=== PATIENT | female | born 1960 | race Caucasian/White ===

== ENCOUNTER 2018-05-25 12:54 | Outpatient (CLI) | payer MEDICARE, MEDICAID ==
[2018-05-25 13:57] LABS: #Basophils 0.1 thou/uL (0.0-0.2); #Eosinphils 0.2 thou/uL (0.0-0.7); #Lymphocytes 3.5 thou/uL (1.20-3.40); #Monocytes 0.6 thou/uL (0.11-0.59); #Neutrophils 5.1 thou/uL (1.40-6.50); %Basophils 0.8 % (0.0-1.0); %Lymphocytes 36.7 % (21.0-51.0); %Monocytes 6.3 % (0.0-10.0); %Neutrophils 54.2 % (42.0-75.0); Hemoglobin 12.7 g/dL (12.0-16.0); Mean Corpuscular HGB CONC 32.6 g/dL (32.0-36.0); Mean Corpuscular Hemoglobin 31.2 pg (27.0-31.0); Mean Corpuscular Volume 95.7 fL (78.0-98.0); Mean Platelet Volume 6.9 fL (7.4-10.4); Platelet Count 245 thou/uL (130-400); RBC Distribution Width 11.8 % (11.5-14.5); Red Blood Cell (RBC) Count 4.06 mill/uL (4.20-5.40); White Blood Cell (WBC) Count 9.4 thou/uL (4.8-10.8)
[2018-05-25 14:32] LABS: Anion Gap 14 mmol/L (10-20); BUN (Urea Nitrogen) 16 mg/dL (9.8-20.1); Calc. Creatinine Clearance 0 mL/min (70-130); Carbon Dioxide 23 mmol/L (22-29); Chloride 106 mmol/L (98-107); Estimated GFR-MDRD 58; Glucose 96 mg/dL (70-105); Sodium 139 mmol/L (136-145)
== END 2018-05-25 12:55 | disposition home or self-care (01) ==
LOC: LABBT 12:54
PROVIDERS: ATTEND Surgery
DX: Z01.812 Encounter for preprocedural laboratory examination (principal); C21.0 Malignant neoplasm of anus, unspecified
CPT/HCPCS: 80048; 85025

== ENCOUNTER 2018-05-28 10:29 | Day surgery (SDC) | payer MEDICARE, MEDICAID ==
[2018-05-25 13:26] VITALS: BMI 24.4
[2018-05-28] MEDS ORDERED: Lidocaine 2% PF Inj 2 ML VIAL ONE (11:55)
[2018-05-28] MEDS ORDERED: Bupivacaine/Epinephrine 0.25% 30 ML VIAL ONE (11:55)
[2018-05-28] MEDS ORDERED: Midazolam HCl 2 mg/2 ml Vial ONE (12:02)
[2018-05-28] MEDS ORDERED: CEFAZOLIN/Water 2 GM/20 ML SYRINGE ONE (12:05)
[2018-05-28] MEDS ORDERED: PHENYLEPHRINE-NS 100 MCG/ML 10 ML SYRINGE ONE (12:37)
[2018-05-28] MEDS ORDERED: PROPOFOL 200 MG/20 ML VIAL ONE (12:37)
[2018-05-28] MEDS ORDERED: Lidocaine 1% PF 5 ML VIAL ONE (12:37)
--- NOTE | 2018-05-28 14:24 | OP ---
DATE OF PROCEDURE: 05/28/2018 PREOPERATIVE DIAGNOSIS: Anal squamous cell carcinoma. POSTOPERATIVE DIAGNOSIS: Anal squamous cell carcinoma. PROCEDURE: Tunneled central line with subcutaneous port (MediPort, CT injectable). ANESTHESIA: General. ESTIMATED BLOOD LOSS: Minimal. COMPLICATIONS: None. SPECIMEN: None. FINDINGS: Tip of the catheter is at the atriocaval junction. TECHNIQUE: The patient was taken to the operating room and placed supine on the table. After genera l anesthetic was obtained, bilateral neck and chest was prepped and draped in a sterile fashion. Loc al anesthetic infiltrated over the right internal jugular vein. Internal jugular vein cannulated usi ng a 22-gauge finder needle followed by a Seldinger needle. Wire was passed into the superior vena c ruby under fluoroscopic guidance. A small sebastián was made at the wire entrance site. A separate 3-cm i ncision made in the right upper chest. Subcutaneous pocket made below the lower incision. Tubing fo r the MediPort tunneled from the inferior to superior incision. Introducer sheath was placed over th e wire into the superior vena cava under fluoroscopy guidance. The dilator wire removed. The end of the catheter shredded into the sheath and the sheath was peeled away. The tip of the catheter is at the atriocaval junction. MediPort tubing is cut to fit the MediPort at the lower incision, connecte d to the MediPort, and the MediPort sewn to the chest wall and the subcutaneous pocket using Prolene. All ports flushed and draw blood without difficulty. MediPort is flushed with a heparin flush. In cisions are closed using 3-0 Vicryl, 4-0 Monocryl, and Dermabond. The patient went to recovery in st able condition. All sponge counts and needle counts, and lap counts were correct.
--- NOTE | 2018-05-28 14:56 | RAD ---
PORTABLE CHEST ONE VIEW: Date: 05-28-18 Time: 1:30 p.m. History: Mediport placement. FINDINGS: The heart size is normal. The lungs are expanded. There is a calcified granuloma in the right midlung . The tip of the left [id number], the tip is in the projection of the SVC. No pneumothoraces, fo rosibel areas of consolidation, or pleural effusions are seen. POS: [facility]
== END 2018-05-28 14:30 | disposition home or self-care (01) ==
LOC: SDC 10:29
PROVIDERS: ATTEND Surgery
PROC: 0JH63WZ Insertion of Totally Implantable Vascular Access Device into Chest Subcutaneous Tissue and Fascia, Percutaneous Approach (ICD-10-PCS; principal; 2018-05-28)
DX: C21.0 Malignant neoplasm of anus, unspecified (principal); F17.210 Nicotine dependence, cigarettes, uncomplicated; Z79.899 Other long term (current) drug therapy
CPT/HCPCS: 71045; C1788; J1642; J2001; J2250; J2704

== ENCOUNTER 2018-06-01 08:31 | Outpatient (CLI) | payer MEDICARE, MEDICAID ==
[2018-06-01] MEDS ORDERED: ISOVUE-370 76%-LOCM 1 ML ONE (13:26)
--- NOTE | 2018-06-01 17:43 | CT ---
CT CHEST WITH IV CONTRAST CT ABDOMEN AND PELVIS WITH IV AND ORAL CONTRAST: Date: 06/01/18 HISTORY: Anal cancer. Initial staging. FINDINGS: Calcified granulomata are present throughout each lung. Pulmonary hyperinflation. Calcification in th e arterial structures with some calcified mediastinal lymph nodes evident. Some lymph nodes measure u p to 1.2 cm greatest diameter throughout the mediastinum. No overtly enlarged lymph nodes. At the anterior midline liver dome, a lobular low density mass measuring up to 2.1 cm greatest diamet er shows peripheral nodular enhancement with the appearance of a hemangioma. Tiny, nonspecific low de nsity lesion is also evident within the right lateral dome of the liver. There are calcified lymph no camden within the central abdomen. A 0.4 cm calculus is evident within a nondilated hai at the inferio r pole of the left kidney. Degenerative changes lumbar spine. Urinary bladder is unremarkable. Within the subcutaneous tissues at the intergluteal fold, lobular, well circumscribed, soft tissue de nsity lesions measure up to 2.5 cm obliquely on the right, and 1.0 cm on the left. These have the torie earance of a subcutaneous process. IMPRESSION: 1. No reliable evidence of metastatic disease. Incidental findings as detailed above, including malinda ngioma within the left liver lobe. 2. Atherosclerosis. 3. Nonobstructing small left renal calculus. POS: [facility]
== END 2018-06-01 08:32 | disposition home or self-care (01) ==
LOC: BICCT 08:31
PROVIDERS: ATTEND Internal Medicine Hematology & Oncology
DX: C21.1 Malignant neoplasm of anal canal (principal); N20.0 Calculus of kidney; I70.90 Unspecified atherosclerosis
CPT/HCPCS: 71260; 74177

== ENCOUNTER 2018-06-07 10:38 | Outpatient (CLI) | payer MEDICARE, MEDICAID ==
--- NOTE | 2018-06-07 15:42 | PET ---
PET CT FROM SKULL BASE TO MID THIGHS: INDICATION: History of anal cancer. COMPARISON: Prior CT of the chest, abdomen, and pelvis dated 06/01/18. TECHNIQUE: Multiple PET CT images were obtained from the skull base through the mid thighs following injection o f 10.8 mCi [id number] IV. CT images were obtained for attenuation correction purposes only. FINDINGS: The biodistribution for the examination appears acceptable. Head/Neck: There is hypermetabolic activity involving the left adenoids and both palatine tonsils. The right pal atine tonsil has a peak SUV uptake of 4.5 and a mean uptake of 4.06. The left palatine tonsil has a p eak uptake of 3.34 and a mean uptake of 3.18. There is an enlarged and hypermetabolic deep right Leve l IIA lymph node measuring 1.1 cm with a peak uptake of 3.2 and a mean uptake of 3.17. There is an ad ditional right Level III mildly prominent lymph node measuring 7.0 mm in its greatest short axis dime nsion and with an increased metabolic uptake of 2.36 and a mean uptake of 2.1. No additional hypermet abolic lymphadenopathy or masses are identified within the head/neck region. Thorax: There is a right IJ chest wall port in place. There are shotty appearing lymph nodes with calcificati ons seen within the mediastinum and both hilar regions. There are coronary artery and thoracic aortic calcifications. No hypermetabolic pulmonary nodule or pleural effusion is evident. There is a calcif ied granuloma in the right upper lobe. There is scattered emphysema. Abdomen/Pelvis: There are numerous calcified lymph nodes within the upper abdomen. There are calcified granuloma with in the spleen. There is some background activity seen within the liver and colon. There is excretory activity seen within the kidneys. There are scattered vascular calcifications. There is prominent hypermetabolic uptake seen at the level of the anus with a peak uptake of 11.17 an d a mean uptake of 10.4. There are subcutaneous hypodense lesions adjacent to the midline gluteal memo ft likely reflecting small sebaceous cysts. There is an enlarged left inguinal lymph node measuring 1 .4 cm with mild hypermetabolic activity measuring up to 2.66 and a mean value of 2.18. Skin/Osseous Structures: No hypermetabolic skin or osseous abnormality is demonstrated. IMPRESSION: Abnormal PET scan: 1. There is a hypermetabolic mass seen at the level of the anus consistent with patient's known hist ory of anal cancer. 2. There is a hypermetabolic left inguinal lymph node measuring up to 1.4 cm suspicious for metastat ic disease. 3. Hypermetabolic activity involving the palatine tonsils and left adenoidal tissue with adjacent ri ght neck hypermetabolic lymph nodes. This can be infectious in nature. Pharyngeal malignancy cannot b e entirely excluded. Recommend correlation with direct visualization of the patient's history. A foll ow-up CT of the soft tissues of the neck utilizing contrast may be helpful to document clearance. 4. Findings of prior granulomatous disease. 5. Emphysema. 6. Coronary artery calcifications. POS: [facility]
== END 2018-06-07 10:39 | disposition home or self-care (01) ==
LOC: PET 10:38
PROVIDERS: ATTEND Radiology Radiation Oncology
DX: C21.8 Malignant neoplasm of overlapping sites of rectum, anus and anal canal (principal); K62.89 Other specified diseases of anus and rectum; J43.9 Emphysema, unspecified; I25.10 Atherosclerotic heart disease of native coronary artery without angina pectoris
CPT/HCPCS: 78815; 80053; 82248; 83615; 84100; 84550; A9552; 36415

== ENCOUNTER 2018-06-11 14:05 | Day surgery (SDC) | payer MEDICARE, MEDICAID ==
[2018-06-11] MEDS ORDERED: Sodium Chloride 0.9% 20 ML ONE (14:17)
[2018-06-11 15:04] VITALS: BP 147/85; TEMP 98.1
[2018-06-11] MEDS ORDERED: PALONOSETRON HCL 0.05 MG/ML 5 ML VIAL IVP SCH (15:15)
[2018-06-11] MEDS ORDERED: SODIUM CHLORIDE 0.9% IV SCH (15:45)
[2018-06-11] MEDS ORDERED: MITOMYCIN IV SCH (15:45)
== END 2018-06-11 16:02 | disposition home or self-care (01) ==
LOC: ONC/OP 14:05
PROVIDERS: ATTEND Internal Medicine
DX: Z51.11 Encounter for antineoplastic chemotherapy (principal); C21.1 Malignant neoplasm of anal canal; F17.210 Nicotine dependence, cigarettes, uncomplicated; Z79.899 Other long term (current) drug therapy
CPT/HCPCS: 96375; 96409; J1642; J2469; J7050; J9280

== ENCOUNTER 2018-07-16 11:41 | Day surgery (SDC) | payer MEDICARE, MEDICAID ==
[2018-07-16 11:52] VITALS: TEMP 97.4
[2018-07-16] MEDS ORDERED: Palonosetron HCl 0.25 MG in Sodium Chloride 0.9% 50 ML IVPB SCH (12:00)
[2018-07-16] MEDS ORDERED: MITOMYCIN IV SCH ×2 (12:00→12:15)
[2018-07-16] MEDS ORDERED: SODIUM CHLORIDE 0.9% IV SCH ×2 (12:00→12:15)
== END 2018-07-16 14:06 | disposition home or self-care (01) ==
LOC: ONC/OP 11:41
PROVIDERS: ATTEND Internal Medicine
DX: Z51.11 Encounter for antineoplastic chemotherapy (principal); Z53.9 Procedure and treatment not carried out, unspecified reason; C21.1 Malignant neoplasm of anal canal; F17.210 Nicotine dependence, cigarettes, uncomplicated
CPT/HCPCS: 96375; 96409; J2469; J7050; J9280